=== PATIENT | female | born 1985 | race Caucasian/White ===

== ENCOUNTER → 2022-05-17 | Outpatient (CLI) | payer SELFPAY ==
[2022-05-17 12:07] LABS: BASO # 0.03 K/mm3 (0.02-0.10); EOS # 0.08 K/mm3 (0.04-0.40); EOS % 1.3 % (1.0-5.0); HEMOGLOBIN 11.3 g/dL (12.5-16.0); LYMPH# 1.34 K/mm3 (1.50-4.00); MEAN CELL VOLUME 77 fl (78-100); MEAN CORPUSCULAR HEMOGLOBIN 24 pg (27-31); MEAN CORPUSCULAR HGB CONC 31 g/dL (33-37); NEU # 3.94 K/mm3 (1.40-6.50); PLATELET COUNT 322 K/mm3 (130-400); RED BLOOD COUNT 4.79 M/mm3 (4.10-5.30); RED CELL DISTRIBUTION WIDTH 15.9 % (11.5-14.5)
[2022-05-17 12:22] LABS: POTASSIUM 4.2 mmol/L (3.5-5.1)
[2022-05-17 12:23] LABS: CALCIUM 9.3 mg/dL (8.3-10.5)
== END ==
LOC: LAB 12:01
PROVIDERS: Family Medicine
DX: J06.9 Acute upper respiratory infection, unspecified (principal); R51.9 Headache, unspecified; R50.81 Fever presenting with conditions classified elsewhere; Z20.822 Contact with and (suspected) exposure to COVID-19

== ENCOUNTER 2024-01-07 15:23 | Emergency (ER) | payer BC ==
[~2024-01-07] VITALS: Ht 162.6 cm; Wt 68.2 kg
[~2024-01-07 15:23] MED LIST: AMITRIPTYLINE H10 M2 PO; CLONAZEPAM0.5 M1 PO; INDERAL 10MG10 MG PO; LISDEXAMFETAMIN20 MG PO; OMEPRAZOLE40 MG PO; PREGABALIN50 MG PO; ROBAXIN 75750 MG/TA1 PO; UBRELVY50 MG PO; ZAFEMY 150-351 EACH TD; ZOFRAN ODT4 MG PO
[2024-01-07] MEDS ORDERED: Iohexol 350 - 100 ML VIAL IV ONE (16:29)
[2024-01-07] MEDS ORDERED: Ketorolac 30 MG/ML VIAL IV ONE (16:30)
[2024-01-07] MEDS ORDERED: Orphenadrine 60 MG/2ML AMP IV ONE (16:30)
[2024-01-07] MEDS ORDERED: Acetaminophen 500 MG TAB PO ONE (17:15)
[2024-01-07] MEDS ORDERED: ORPHENADRINE C100 MG PO (17:51)
[2024-01-07 18:11] VITALS: BP 130/84
== END 2024-01-07 18:10 | disposition home or self-care (01) ==
LOC: ED 15:23
DX: G44.86 Cervicogenic headache (principal); Z91.040 Latex allergy status; Z88.1 Allergy status to other antibiotic agents; Z88.2 Allergy status to sulfonamides
CPT/HCPCS: J1885; J2360; Q9967